=== PATIENT | male | born 1935 | race Caucasian/White ===

== ENCOUNTER 2017-12-01 05:33 | Day surgery (SDC) | payer MEDICARE ==
[2017-11-28 12:45] VITALS: BMI 24.1
--- NOTE | 2017-11-30 09:58 | HP ---
HISTORY AND PHYSICAL CHIEF COMPLAINT: Right shoulder pain. HISTORY OF PRESENT ILLNESS: The patient is a 81-year-old retired right-hand dominant male who presents with right shoulder pain after an injury in September of this year. He was throwing horseshoes. He also had a second injury where he fell landing on his right side. He has tried therapy in addition to medications with persistent pain. He is having pain with attempted overhead use and at night. He notes it limits his normal function and activities. PAST MEDICAL HISTORY: Significant for atrial fibrillation, hypertension, sarcoidosis and rheumatoid arthritis. PAST SURGICAL HISTORY: Significant for appendectomy. CURRENT MEDICATIONS: 1. Atenolol. 2. Meloxicam. 3. Prilosec. 4. Benadryl. He notes allergies to LEVAQUIN, CELEBREX, SULFA, and Prednisone. FAMILY HISTORY: Significant for cancer. SOCIAL HISTORY: Significant for previous tobacco use; however, he quit in 2014. 16 POINT REVIEW OF SYSTEMS: Otherwise reviewed and is noncontributory. PHYSICAL EXAMINATION: On examination, the patient is approximately 5 foot 5, 154 pounds of mesomorphic habitus. HEENT exam is nonfocal. Neck is supple. On examination of his right shoulder, he is tender about the anterior subacromial space. He has mild subacromial crepitus. Active range of motion, forward elevation 125 degrees, external rotation with arm at side 45 degrees. Internal rotation to L3. Passively, I am able to forward elevate him to 135 degrees. Motor strength is 4+/5 for abduction, 5-/5 for external rotation with arm at side. Impingement test, Neer test, and Speed tests are positive. He has pain with lift-off. His distal neurovascular exam otherwise appears intact in the right upper extremity. MRI report of the right shoulder 09/30/2017 shows medial biceps subluxation along with a full-thickness tear involving the supraspinatus tendon. IMPRESSION: 1. Right proximal biceps tendinosis/partial thickness tear. 2. Symptomatic right rotator cuff tear. 3. History of rheumatoid arthritis. 4. History of sarcoidosis. RECOMMENDATIONS: I talked to the patient at length regarding his condition and treatment options. At this point he remains quite symptomatic, despite conservative measures. After thorough discussion, he opts to proceed with surgery. We will plan to proceed with arthroscopic evaluation with probable subacromial decompression, possible rotator cuff repair, and possible biceps tenotomy. Risks and benefits were discussed at length in layman's terms. We will likely perform that as an outpatient procedure. MMODL / IJN: [id number] /
[~2017-12-01 05:33] MED LIST: ceFAZolin 1,000 MG in DEXTROSE/WATER 1 50ML.BAG IV ONE
[2017-12-01] MEDS ORDERED: LIDOCAINE 1% 20 ML VIAL (10MG/ML) FOR IV START INTRADERMA PRN (05:42)
[2017-12-01] MEDS ORDERED: ONDANSETRON 4 MG/2 ML VIAL IVP ONE ×2 (05:42→11:36)
[2017-12-01] MEDS ORDERED: LACTATED RINGERS 1,000 ML IV SCH (05:42)
[2017-12-01] MEDS ORDERED: MIDAZOLAM 2 MG/2 ML VIAL ONE ×2 (07:11→08:00)
--- NOTE | 2017-12-01 07:28 | P.ONQ ---
Anesthesiology Proc Note - PNB - Peripheral Nerve Block Performed Right Interscalene Single Time Out Performed: Yes Procedure Start Time: 07:14 Procedure Stop Time: :21 Indication: Requested by physician Specifically requested for management of pain by : Noel Dykes Sedation Type: Sedate with meaningful contact maintained Preparation: Sterile Prep Position: Supine Needle Types: Other (see comment) Needle Size: 50mm (2") Needle Gauge: 21 Technique: Ultrasound Injectate: 0.5% Ropivacaine (see comment for volume) (10 ml plus lidocaine 2?5 with epi 10 ml) Blood Aspirated: No Pain Paresthesia on Injection Noted: No Resistance on Injection: Normal Events: Uneventful and Well Tolerated
[2017-12-01] MEDS ORDERED: KETOROLAC 30 MG/ML 1 ML VIAL ONE (08:00)
[2017-12-01] MEDS ORDERED: ROPIVACAINE 5 MG/ML 30 ML VIAL ONE (08:00)
[2017-12-01] MEDS ORDERED: LIDOCAINE 2%-EPI 1:100,000 20 ML VIAL ONE (08:00)
[2017-12-01] MEDS ORDERED: LABETALOL 5 MG/ML VIAL MDV ONE (08:00)
[2017-12-01] MEDS ORDERED: LIDOCAINE 1% INJ 10MG/ML (20 ML MDV) ONE (08:00)
[2017-12-01] MEDS ORDERED: NALOXONE 0.4 MG/ML 1 ML VIAL ONE (08:00)
[2017-12-01] MEDS ORDERED: fentaNYL (PF) 50 MCG/ML 2 ML AMP ONE (08:00)
[2017-12-01] MEDS ORDERED: PROPOFOL 10 MG/ML 20 ML VIAL IV ONE (08:00)
[2017-12-01] MEDS ORDERED: HYDROmorphone (PF) 1 MG/ML ONE (08:00)
[2017-12-01] MEDS ORDERED: SUCCINYLCHOLINE CHLORIDE 100 MG/5 ML SYR IV ONE (08:00)
[2017-12-01] MEDS ORDERED: LACTATED RINGERS 1,000 ML IV ONE ×2 (08:27→10:25)
[2017-12-01] MEDS ORDERED: EPINEPHrine (PF) 1 ML in SODIUM CHLORIDE 0.9% IRRIGATIO 3,000 ML IRRIGATION ONE ×8 (08:27)
[2017-12-01 09:36] VITALS: TEMP 97.4
--- NOTE | 2017-12-01 09:36 | P.OP ---
Date of Procedure: 12/01/17 Preoperative Diagnosis: Right symptomatic rotator cuff tear, high-grade partial-thickness tear long head of the biceps Postoperative Diagnosis: Same Procedure(s) Performed: Right shoulder arthroscopic subacromial decompression/biceps tenotomy/rotator cuff repair Implants: Arthrex 5.5 mm swivel lock anchor 2 Anesthesia: MARIA GUADALUPE, [facility] Surgeon: Noel Dykes Estimated Blood Loss (ml): 10 Pathology: none sent Condition: stable Disposition: PACU Indications for Procedure: The patient is a 81-year-old male who presents with progressive right shoulder pain after a recent injury despite conservative measures. A discussion of the risks and benefits of operative intervention versus continued conservative measures was made with patient. He opted to proceed with surgery. Operative risks to include infection, neurovascular injury, development of blood clots, possible tendon rerupture, possible postoperative stiffness and need for subsequent procedures was discussed. Informed consent was obtained. Operative Findings: As below Description of Procedure: The patient was brought to the operating room, and after induction of general anesthesia was placed in the beachchair position. Bony prominences were appropriately padded. A preoperative interscalene block was performed by anesthesia for postoperative analgesia. I examined the right shoulder. There was no gross block to passive motion or instability. The right upper extremity was prepped and draped in normal fashion. The bony outlines the acromion, distal clavicle, and coracoid process were outlined with a skin marker. The glenohumeral joint was inflated with 50 mL of saline utilizing a spinal needle from posterior approach. A posterior portal was made through a 5 mm skin incision 1 cm medial and inferior to the posterior lateral border of the acromion. A blunt trocar was used to easily into the joint. Diagnostic arthroscopy was performed. An anterior portal was made entering the joint above the subscapularis tendon lateral to the coracoid process. The subscapularis appeared to be intact. There was a high-grade partial-thickness tear of the intra-articular portion of the biceps. It was elected to proceed with tenotomy at this point. It was released from the superior labrum with electrocautery and allowed to retract the bicipital groove. The superior labrum was intact. The anterior and posterior labrum were intact. Minimal degenerative changes involving humeral head and glenoid were noted. The rotator cuff was inspected. A full-thickness tear involving the anterior aspect the supraspinatus was noted with minimal retraction. The posterior portion the cuff appeared intact. The arthroscope was placed into the acromial space. A lateral portal was made through a 5 mm skin incision 2 cm inferior to the anterior lateral border of the acromion. The soft tissue on the undersurface of the acromion was debrided with a motorized shaver and with electrocautery clearly defining the anterior medial and lateral borders as well as the distal clavicle. An anterior inferior acromioplasty is performed with a motorized cielo starting anterolateral, then extending this posteriorly, then extending this medially. I was able to convert to a flat acromion. This was verified from the posterior and lateral viewing portals. The coracoacromial ligament was detached from the anterior acromion with electrocautery. The rotator cuff was then inspected. A 1.5 cm tear involving the anterior aspect the supraspinatus was noted with minimal retraction. This was easily brought back to the greater tuberosity. A motorized cielo was used to lightly debride the greater tuberosity down to bleeding bony surface. An accessory superior lateral portal was made through a 4 mm skin incision off the lateral edge of the acromion. A 5.5 mm swivel lock anchor was placed in the appropriate starting awl loaded with #2 fiber tape. The fiber tape was then passed through the rotator cuff with a scorpion suture passer. A lateral was then placed with the appropriate starting awl. A 5.5 mm swivel lock anchor was placed. The suture was appropriately tensioned. Final arthroscopic view showed adequate compression of the rotator cuff on the footprint. The arthroscope was then removed. The portals were closed with simple 3-0 nylon suture. A sterile dressing was applied in addition to an abductor brace. The patient was awoken from general anesthesia and transferred to the recovery room in good condition. Blood loss was estimated at 10 mL. No complications were incurred. Sponge and needle counts were correct at the end the case.
[2017-12-01 09:42] LABS: Glucose,Whole Blood 113 mg/dL (75-99)
[2017-12-01] MEDS: HYDROmorphone 0.5 MG/0.5 ML SYRINGE IVP PRN ×2 (10:21→10:30)
[2017-12-01 10:24] VITALS: RESP 18
[2017-12-01] MEDS ORDERED: ALBUTEROL NEBULIZED 2.5 MG/3 ML INHALATION STA (11:22)
[2017-12-01 13:03] VITALS: BP 152/74; PULSE 63
== END 2017-12-01 13:37 | disposition home or self-care (01) ==
LOC: OR 05:33
PROVIDERS: ATTEND Orthopaedic Surgery
DX: S46.011A Strain of muscle(s) and tendon(s) of the rotator cuff of right shoulder, initial encounter (principal); S46.111A Strain of muscle, fascia and tendon of long head of biceps, right arm, initial encounter; X58.XXXA Exposure to other specified factors, initial encounter; W19.XXXA Unspecified fall, initial encounter; Y93.59 Activity, other involving other sports and athletics played individually; D86.9 Sarcoidosis, unspecified; J44.9 Chronic obstructive pulmonary disease, unspecified; E78.5 Hyperlipidemia, unspecified; I48.0 Paroxysmal atrial fibrillation; M06.9 Rheumatoid arthritis, unspecified; I11.0 Hypertensive heart disease with heart failure; I50.30 Unspecified diastolic (congestive) heart failure; Z79.82 Long term (current) use of aspirin; Z79.899 Other long term (current) drug therapy; Z79.1 Long term (current) use of non-steroidal anti-inflammatories (NSAID); Z88.1 Allergy status to other antibiotic agents; Z88.2 Allergy status to sulfonamides; Z88.8 Allergy status to other drugs, medicaments and biological substances; Z87.891 Personal history of nicotine dependence
CPT/HCPCS: 94640; 64415; 29827; 29826; C1713 ×2; C1894; J2250; J2310; J2405; J0171; J2001; J3010; J1885; J1170 ×2; J0690; J2795; J0330; J2704

== ENCOUNTER → 2018-08-13 | Outpatient (CLI) | payer MEDICARE ==
--- NOTE | 2018-08-13 10:03 | MR ---
EXAMINATION TYPE: MR cervical spine wo con DATE OF EXAM: 08/13/2018 COMPARISON: None HISTORY: Neck pain TECHNIQUE: Multiplanar, multisequence images of the cervical spine were acquired. C2-C3: There is disc desiccation. Mild uncovertebral joint hypertrophy. No canal stenosis or focal he rniation. C3-C4: Degenerative disc disease with bilateral uncovertebral joint hypertrophy and facet arthropathy . Moderate to severe right foraminal encroachment and moderate left foraminal encroachment. Ligamentu m flavum hypertrophy and central disc bulging contributes to mild central stenosis. C4-C5: Degenerative disc disease with bilateral uncovertebral joint hypertrophy. There is mild bilate ral foraminal encroachment. No Canal stenosis. C5-C6: Degenerative disc disease with broad-based central disc bulging with disc osteophyte complex. Uncovertebral joint hypertrophy contributes to mild right and moderate left foraminal encroachment. D isc bulging capped by spur abuts the anterior margin the spinal cord with moderate central stenosis. C6-C7: Degenerative disc disease with broad-based central disc protrusion. There is uncovertebral balwinder nt hypertrophy and mild to moderate bilateral foraminal encroachment. There is mild effacement of the justus sac. C7-T1: No disc herniation or canal stenosis. No foraminal encroachment. Cervical segments are intact. There is normal alignment. Cervical spinal cord is of normal signal. Craniovertebral junction relationships are within normal limits. IMPRESSION: 1. Multilevel degenerative disc disease with multilevel foraminal encroachment. Hypertrophic change a nd disc bulging or protrusion results in multilevel canal stenosis as discussed above.
== END | disposition home or self-care (01) ==
LOC: RADMRIMAIN 08:41
PROVIDERS: ATTEND Family Medicine
DX: M48.02 Spinal stenosis, cervical region (principal); M50.222 Other cervical disc displacement at C5-C6 level; M50.223 Other cervical disc displacement at C6-C7 level; M50.31 Other cervical disc degeneration, high cervical region; M54.12 Radiculopathy, cervical region
CPT/HCPCS: 72141

== ENCOUNTER 2021-11-15 15:22 | Inpatient (IN) | payer MEDICARE ==
[2021-11-15 19:11] LABS: Appearance,Urine Clear (Clear); Bilirubin,Urine Negative (Negative); Blood,Urine Moderate (Negative); Color,Urine Light Yellow; Glucose,Urine (UA) Negative (Negative); Ketones,Urine Trace (Negative); Leukocyte Esterase,Urine Negative (Negative); Nitrite,Urine Negative (Negative); PH, Urine 5.5 (5.0-8.0); Protein,Urine Trace (Negative); RBC,Urine 4 /hpf (0-5); Specific Gravity,Urine 1.012 (1.001-1.035); Squamous Epithelial Cell,Urine <1 /hpf (0-4); Urobilinogen,Urine <2.0 mg/dL (<2.0); WBC,Urine 2 /hpf (0-5)
[2021-11-15] MEDS ORDERED: SODIUM CHLORIDE 0.9% 1,000 ML IV STA (20:19)
[2021-11-15] MEDS ORDERED: MORPHINE SULFATE 4 MG/ML SYRINGE IV STA (20:24)
[2021-11-15] MEDS ORDERED: ONDANSETRON 4 MG/2 ML VIAL IVP STA (20:24)
--- NOTE | 2021-11-15 20:30 | ED ---
Abdominal Pain HPI - General Chief Complaint: Abdominal Pain Stated Complaint: kidney stone,sent by gordon to be admitted Time Seen by Provider: 11/15/21 20:18 Source: patient, RN notes reviewed Mode of arrival: ambulatory Limitations: no limitations - History of Present Illness Initial Comments: This is a pleasant 85-year-old male presents back complaining of sharp left flank pain which started on Monday. Pain is essentially been constant. No a lleviating or exacerbating factors. Patient was seen at the [facility] facility and transferred here for admission. They were concerned about the size of the stone which is 6 x 4 x 4 mm in the left proximal ureter. There was concerned about the patient's renal function which shows a creatinine of 2.01 which is almost doubled from the patient's previous creatinine here. Patient was given Flomax at the previous facility. He is also given pain medication. Patient still complaining of pain at this time. No fever or chills. No headache, no fever or chills, no changes in vision or hearing, no sore throat or difficulty with speech, no neck pain, no chest pain or shortness of breath, n o abdominal pain, no nausea or vomiting, no changes in urination or bowel movements, no numbness or tingling, no extremity pain, no skin rashes or lesions. Past medical, surgical, social, and family history reviewed. MD Complaint: flank pain - Related Data Home Medications Medication Instructions Recorded Confirmed Aspirin [Adult Low Dose Aspirin EC] 81 mg PO DAILY 11/28/17 12/01/17 Esomeprazole Magnesium [NexIUM] 20 mg PO DAILY 11/28/17 12/01/17 Omeprazole 20 mg PO AC-BRKFST 11/28/17 12/01/17 atenoloL 25 mg PO BID 11/28/17 12/01/17 diphenhydrAMINE HCL [Benadryl] 25 mg PO BID 11/28/17 12/01/17 Budesonide [Pulmicort Flexhaler] 2 puff INHALATION BID 12/01/17 12/01/17 Ipratropium/Albuterol Sulfate 1 - 2 puff INHALATION QID 12/01/17 12/01/17 [Combivent Respimat Inhaler] Meloxicam 15 mg PO DAILY PRN 12/01/17 12/01/17 Previous Rx's Medication Instructions Recorded HYDROcodone/APAP 7.5-325MG [Welch 1 tab PO Q4-6H PRN #28 tab 12/01/17 7.5-325] Allergies Allergy/AdvReac Type Severity Reaction Status Date / Time prednisone Allergy Severe Rash/Hives Verified 11/15/21 17:03 celecoxib [From Celebrex] Allergy "passed Verified 11/15/21 17:03 out" levofloxacin [From Levaquin] Allergy Rash/Hives Verified 11/15/21 17:03 Penicillins Allergy Rash/Hives Verified 11/15/21 17:03 Sulfa (Sulfonamide Allergy Unknown Verified 11/15/21 17:03 Antibiotics) Review of Systems ROS Statement: Those systems with pertinent positive or pertinent negative responses have been documented in the HPI. ROS Other: All systems not noted in ROS Statement are negative. Past Medical History Past Medical History: Atrial Fibrillation, COPD, Hyperlipidemia, Hypertension, Osteoarthritis (OA) History of Any Multi-Drug Resistant Organisms: None Reported Past Surgical History: Appendectomy, Orthopedic Surgery Additional Past Surgical History / Comment(s): "bone chip in ankle" Past Anesthesia/Blood Transfusion Reactions: No Reported Reaction Past Psychological History: No Psychological Hx Reported Smoking Status: Former smoker Past Alcohol Use History: Rare Past Drug Use History: None Reported - Past Family History Sister(s) Family Medical History: Cancer Brother(s) Family Medical History: Cancer General Exam - General Exam Comments Initial Comments: Vital signs reviewed, patient does not appear to be ill or toxic. Limitations: no limitations General appearance: in distress Head exam: Present: atraumatic, normocephalic, normal inspection Eye exam: Present: normal appearance, PERRL, EOMI. Absent: scleral icterus, conjunctival injection, periorbital swelling ENT exam: Present: normal exam, mucous membranes moist Neck exam: Present: normal inspection, full ROM. Absent: tenderness, meningismus, lymphadenopathy Respiratory exam: Present: normal lung sounds bilaterally. Absent: respiratory distress, wheezes, rales, rhonchi, stridor Cardiovascular Exam: Present: regular rate, normal rhythm, normal heart sounds. Absent: systolic murmur, diastolic murmur, rubs, gallop, clicks GI/Abdominal exam: Present: soft, normal bowel sounds. Absent: distended, tenderness, guarding, rebound, rigid Extremities exam: Present: normal inspection, full ROM, normal capillary refill. Absent: tenderness, pedal edema, joint swelling, calf tenderness Back exam: Present: normal inspection, CVA tenderness (L). Absent: CVA tenderness (R) Neurological exam: Present: alert, oriented X3, CN II-XII intact Psychiatric exam: Present: normal affect, normal mood Skin exam: Present: warm, dry, intact, normal color. Absent: rash Course Vital Signs 11/15/21 11/15/21 17:01 20:19 Temperature 98.3 F Pulse Rate 79 86 Respiratory 16 18 Rate Blood Pressure 156/84 184/90 O2 Sat by Pulse 96 97 Oximetry - Reevaluation(s) Reevaluation #1: 11/15/21 22:15 Case discussed in detail with the on-call urologist as well as Dr. solomon from EMS for admission Medical Decision Making - Medical Decision Making Patient will require admission for left-sided ureteral stone, proximal, 6 x 4 x 4 millimeters. Doubling of renal function with a creatinine of 2.01. Patient's blood pressure also elevated. We'll treat. Discussed with urology and [facility]. Admitted to this hospital discussed all findings with the patient. All questions answered. The case was discussed in detail with ED attending physician. Presentation, findings, treatment plan discussed in detail. She[employer] C[employer] Dr. Chiang - Lab Data Result diagrams: 11/15/21 21:17 11/15/21 21:17 Lab Results 11/15/21 11/15/21 11/15/21 Range/Units 18:21 21:17 21:17 WBC 18.1 H (3.8-10.6) k/uL RBC 3.91 L (4.30-5.90) m/uL Hgb 12.5 L (13.0-17.5) gm/dL Hct 38.6 L (39.0-53.0) % MCV 98.7 (80.0-100.0) fL MCH 32.1 (25.0-35.0) pg MCHC 32.5 (31.0-37.0) g/dL RDW 13.8 (11.5-15.5) % Plt Count 276 (150-450) k/uL MPV 7.3 Neutrophils % 89 % Lymphocytes % 3 % Monocytes % 6 % Eosinophils % 1 % Basophils % 0 % Neutrophils # 16.0 H (1.3-7.7) k/uL Lymphocytes # 0.6 L (1.0-4.8) k/uL Monocytes # 1.2 H (0-1.0) k/uL Eosinophils # 0.1 (0-0.7) k/uL Basophils # 0.0 (0-0.2) k/uL Sodium 131 L (137-145) mmol/L Potassium 4.6 (3.5-5.1) mmol/L Chloride 100 (98-107) mmol/L Carbon Dioxide 21 L (22-30) mmol/L Anion Gap 10 mmol/L BUN 28 H (9-20) mg/dL Creatinine 1.83 H (0.66-1.25) mg/dL Est GFR (CKD-EPI)AfAm 39 (>60 ml/min/1.73 sqM) Est GFR (CKD-EPI)NonAf 33 (>60 ml/min/1.73 sqM) Glucose 142 H (74-99) mg/dL Calcium 8.1 L (8.4-10.2) mg/dL Total Bilirubin 0.7 (0.2-1.3) mg/dL AST 26 (17-59) U/L ALT 10 (4-49) U/L Alkaline Phosphatase 78 (38-126) U/L Total Protein 6.8 (6.3-8.2) g/dL Albumin 3.6 (3.5-5.0) g/dL Urine Color Light Yellow Urine Appearance Clear (Clear) Urine pH 5.5 (5.0-8.0) Ur Specific [place] 1.012 (1.001-1.035) Urine Protein Trace H (Negative) Urine Glucose (UA) Negative (Negative) Urine Ketones Trace H (Negative) Urine Blood Moderate H (Negative) Urine Nitrite Negative (Negative) Urine Bilirubin Negative (Negative) Urine Urobilinogen <2.0 (<2.0) mg/dL Ur Leukocyte Esterase Negative (Negative) Urine RBC 4 (0-5) /hpf Urine WBC 2 (0-5) /hpf Ur Squamous Epith Cells <1 (0-4) /hpf Disposition Clinical Impression: Ureterolithiasis, Acute kidney injury, Hydronephrosis, Hydroureter, left, Uncontrolled hypertension Disposition: ADMITTED IP TO THIS HOSP Condition: Stable Is patient prescribed a controlled substance at d/c from ED?: No Time of Disposition: 20:30 Decision to Admit Reason: Admit from EC Decision Time: 20:30
--- NOTE | 2021-11-15 20:54 | XR ---
EXAMINATION TYPE: XR KUB DATE OF EXAM: 11/15/2021 COMPARISON: NONE HISTORY: Abdominal pain TECHNIQUE: 2 views upright FINDINGS: There is some contrast material in the large bowel. No sign of intestinal obstruction or pn eumoperitoneum. Fecal pattern is normal. Lung bases are clear. There is some pulmonary hyperinflation . IMPRESSION: Nonacute abdomen. There is probably COPD.
[2021-11-15 21:35] LABS: Basophils % (A) 0 %; Eosinophils # (A) 0.1 k/uL (0-0.7); Eosinophils % (A) 1 %; HCT 38.6 % (39.0-53.0); HGB 12.5 gm/dL (13.0-17.5); Lymphocytes # (A) 0.6 k/uL (1.0-4.8); Lymphocytes % (A) 3 %; MCH 32.1 pg (25.0-35.0); MCHC 32.5 g/dL (31.0-37.0); MCV 98.7 fL (80.0-100.0); Mean Platelet Volume 7.3; Monocytes # (A) 1.2 k/uL (0-1.0); Monocytes % (A) 6 %; Neutrophils % (A) 89 %; Platelet Count 276 k/uL (150-450); RBC 3.91 m/uL (4.30-5.90); RDW 13.8 % (11.5-15.5); WBC 18.1 k/uL (3.8-10.6)
[2021-11-15 21:37] LABS: Albumin 3.6 g/dL (3.5-5.0); Calcium 8.1 mg/dL (8.4-10.2); Total Bilirubin 0.7 mg/dL (0.2-1.3); Total Protein 6.8 g/dL (6.3-8.2)
[2021-11-15 21:44] LABS: Potassium 4.6 mmol/L (3.5-5.1)
[2021-11-15] MEDS ORDERED: METOPROLOL SUCCINATE (ER) 25 MG TAB.ER.24H PO STA (22:15)
[2021-11-15] MEDS ORDERED: NALOXONE 0.4 MG/ML 1 ML VIAL IV PRN (22:17)
[2021-11-15] MEDS ORDERED: ONDANSETRON 4 MG/2 ML VIAL IVP PRN (22:17)
[2021-11-15] MEDS ORDERED: MORPHINE SULFATE 4 MG/ML SYRINGE IV PRN (22:17)
[2021-11-15] MEDS: SODIUM CHLORIDE 0.9% 1,000 ML IV SCH (22:26)
[2021-11-15] MEDS: TAMSULOSIN 0.4 MG CAP.ER.24H PO SCH (22:57)
[2021-11-15] MEDS ORDERED: KETOROLAC 15 MG/ML 1 ML VIAL IVP PRN (23:00)
[2021-11-16] MEDS ORDERED: ACETAMINOPHEN TAB 325 MG TAB PO PRN
[2021-11-16 06:07] LABS: Calcium 7.7 mg/dL (8.4-10.2); Potassium 4.3 mmol/L (3.5-5.1)
[2021-11-16] MEDS: IPRATROPIUM-ALBUTEROL 3 ML NEB INHALATION SCH ×4 (08:13→19:39)
[2021-11-16] MEDS: atenoloL 25 MG TAB PO SCH ×2 (08:28→23:27)
[2021-11-16] MEDS: PANTOPRAZOLE 40 MG TABLET PO SCH (08:28)
[2021-11-16] MEDS ORDERED: HYDROmorphone 0.5 MG/0.5 ML SYRINGE IVP PRN (08:42)
[2021-11-16] MEDS ORDERED: HYDROcodone/APAP 5-325MG 1 EACH TAB PO PRN (08:43)
[2021-11-16] MEDS: SODIUM CHLORIDE 0.9% 1,000 ML IV SCH (09:40)
[2021-11-16] MEDS ORDERED: IV FLUID CONTINUATION 1,000 ML IV ONE (16:11)
[2021-11-16] MEDS ORDERED: PROPOFOL 10 MG/ML 20 ML VIAL IV ONE ×2 (16:25)
[2021-11-16] MEDS ORDERED: fentaNYL (PF) 50 MCG/ML 2 ML AMP ONE ×2 (16:25)
[2021-11-16] MEDS ORDERED: LIDOCAINE 1% INJ 10MG/ML (20 ML MDV) ONE (16:25)
[2021-11-16] MEDS ORDERED: LIDOCAINE 2% INJ 20 MG/ML (2 ML VIAL) ONE (16:25)
[2021-11-16] MEDS ORDERED: MIDAZOLAM 2 MG/2 ML VIAL ONE ×2 (16:25)
[2021-11-16] MEDS ORDERED: SODIUM CHLORIDE 0.9% 50 ML with ceFAZolin 2,000 MG IV ONE ×2 (16:32)
--- NOTE | 2021-11-16 16:39 | P.GSCN ---
History of Present Illness Consult date: 11/16/21 Reason for Consult: Left ureteral stone History of present illness: This is an 85-year-old male admitted to the hospital with a 6 mm left-sided proximal stone. He was initially seen in [facility], and was transferred to [facility]. At that time he underwent a CT that showed evidence of a 6 mm left- sided proximal stone, and evidence of acute kidney injury and elevation of creatinine is 2. A repeat creatinine this morning was 1.8. He still having persistent flank pain, associated with nausea. Denies any dysuria or gross hematuria. No previous history of kidney stones. No known family history of kidney stones. Review of Systems - Constitutional Denies fever, Denies weight loss - Cardiovascular Denies chest pain, Denies shortness of breath - Respiratory Denies cough, Denies 7 - Gastrointestinal Reports nausea, Denies vomiting - Genitourinary Reports flank pain, Denies hematuria - Integumentary Denies rash, Denies unusual bruising - Neurological Denies headaches, Denies syncope Past Medical History Past Medical History: Atrial Fibrillation, COPD, Hyperlipidemia, Hypertension, O steoarthritis (OA) History of Any Multi-Drug Resistant Organisms: None Reported Past Surgical History: Appendectomy, Orthopedic Surgery Additional Past Surgical History / Comment(s): "bone chip in ankle" Past Anesthesia/Blood Transfusion Reactions: No Reported Reaction Past Psychological History: No Psychological Hx Reported Smoking Status: Former smoker Past Alcohol Use History: Rare Past Drug Use History: None Reported - Past Family History Sister(s) Family Medical History: Cancer Brother(s) Family Medical History: Cancer Medications and Allergies Home Medications Medication Instructions Recorded Confirmed Type atenoloL 25 mg PO BID 11/28/17 11/16/21 History Budesonide [Pulmicort Flexhaler] 2 puff INHALATION RT-BID 12/01/17 11/16/21 History Ipratropium/Albuterol Sulfate 1 - 2 puff INHALATION RT-QID PRN 12/01/17 11/16/21 History [Combivent Respimat Inhaler] Acetaminophen Tab [Tylenol Tab] 500 mg PO Q6H PRN 11/15/21 11/15/21 History Metoprolol Tartrate [Lopressor] 25 mg PO BID 11/15/21 11/16/21 History Apixaban [Eliquis] 5 mg PO BID 11/16/21 11/16/21 History Aspirin 81 mg PO DAILY 11/16/21 11/16/21 History Atorvastatin [Lipitor] 40 mg PO DAILY 11/16/21 11/16/21 History Meloxicam [Mobic] 7.5 mg PO DAILY PRN 11/16/21 11/16/21 History Omeprazole [PriLOSEC] 40 mg PO BID 11/16/21 11/16/21 History Allergies Allergy/AdvReac Type Severity Reaction Status Date / Time prednisone Allergy Severe Rash/Hives Verified 11/16/21 10:42 acetaminophen Allergy Per PCP Verified 11/16/21 10:42 [From Darvocet-N] aspirin Allergy Unknown Verified 11/16/21 10:42 celecoxib [From Celebrex] Allergy "passed Verified 11/16/21 10:42 out" ibuprofen [From Motrin] Allergy Per PCP Verified 11/16/21 10:42 levofloxacin [From Levaquin] Allergy Rash/Hives Verified 11/16/21 10:42 methylprednisolone Allergy Per PCP Verified 11/16/21 10:42 [From Medrol] Penicillins Allergy Rash/Hives Verified 11/16/21 10:42 propoxyphene Allergy Per PCP Verified 11/16/21 10:42 [From Darvocet-N] rofecoxib [From Vioxx] Allergy Per PCP Verified 11/16/21 10:42 Sulfa (Sulfonamide Allergy Per PCP Verified 11/16/21 10:42 Antibiotics) Surgical - Exam Vital Signs Temp Pulse Resp BP Pulse Ox 98.3 F 79 16 156/84 96 11/15/21 17:01 11/15/21 17:01 11/15/21 17:01 11/15/21 17:01 11/15/21 17:01 - General no distress, moderate pain - Eyes normal ocular movement, no pale - ENT normal nares, normal mucosa - Respiratory normal expansion, normal respiratory effort - Abdomen Abdomen: soft, tender (Left flank) - Psychiatric oriented to time, oriented to person, oriented to place Results - Labs 11/15/21 21:17 11/16/21 05:09 Abnormal Lab Results - Last 24 Hours (Table) 11/15/21 11/15/21 11/15/21 Range/Units 18:21 21:17 21:17 WBC 18.1 H (3.8-10.6) k/uL RBC 3.91 L (4.30-5.90) m/uL Hgb 12.5 L (13.0-17.5) gm/dL Hct 38.6 L (39.0-53.0) % Neutrophils # 16.0 H (1.3-7.7) k/uL Lymphocytes # 0.6 L (1.0-4.8) k/uL Monocytes # 1.2 H (0-1.0) k/uL Sodium 131 L (137-145) mmol/L Carbon Dioxide 21 L (22-30) mmol/L BUN 28 H (9-20) mg/dL Creatinine 1.83 H (0.66-1.25) mg/dL Glucose 142 H (74-99) mg/dL Calcium 8.1 L (8.4-10.2) mg/dL Urine Protein Trace H (Negative) Urine Ketones Trace H (Negative) Urine Blood Moderate H (Negative) 11/16/21 Range/Units 05:09 WBC (3.8-10.6) k/uL RBC (4.30-5.90) m/uL Hgb (13.0-17.5) gm/dL Hct (39.0-53.0) % Neutrophils # (1.3-7.7) k/uL Lymphocytes # (1.0-4.8) k/uL Monocytes # (0-1.0) k/uL Sodium 133 L (137-145) mmol/L Carbon Dioxide (22-30) mmol/L BUN 24 H (9-20) mg/dL Creatinine 1.80 H (0.66-1.25) mg/dL Glucose 123 H (74-99) mg/dL Calcium 7.7 L (8.4-10.2) mg/dL Urine Protein (Negative) Urine Ketones (Negative) Urine Blood (Negative) Diabetes panel 11/15/21 11/16/21 Range/Units 21:17 05:09 Sodium 131 L 133 L (137-145) mmol/L Potassium 4.6 4.3 (3.5-5.1) mmol/L Chloride 100 103 (98-107) mmol/L Carbon Dioxide 21 L 23 (22-30) mmol/L BUN 28 H 24 H (9-20) mg/dL Creatinine 1.83 H 1.80 H (0.66-1.25) mg/dL Glucose 142 H 123 H (74-99) mg/dL Calcium 8.1 L 7.7 L (8.4-10.2) mg/dL AST 26 (17-59) U/L ALT 10 (4-49) U/L Alkaline Phosphatase 78 (38-126) U/L Total Protein 6.8 (6.3-8.2) g/dL Albumin 3.6 (3.5-5.0) g/dL Calcium panel 11/15/21 11/16/21 Range/Units 21:17 05:09 Calcium 8.1 L 7.7 L (8.4-10.2) mg/dL Albumin 3.6 (3.5-5.0) g/dL Pituitary panel 11/15/21 11/16/21 Range/Units 21:17 05:09 Sodium 131 L 133 L (137-145) mmol/L Potassium 4.6 4.3 (3.5-5.1) mmol/L Chloride 100 103 (98-107) mmol/L Carbon Dioxide 21 L 23 (22-30) mmol/L BUN 28 H 24 H (9-20) mg/dL Creatinine 1.83 H 1.80 H (0.66-1.25) mg/dL Glucose 142 H 123 H (74-99) mg/dL Calcium 8.1 L 7.7 L (8.4-10.2) mg/dL Adrenal panel 11/15/21 11/16/21 Range/Units 21:17 05:09 Sodium 131 L 133 L (137-145) mmol/L Potassium 4.6 4.3 (3.5-5.1) mmol/L Chloride 100 103 (98-107) mmol/L Carbon Dioxide 21 L 23 (22-30) mmol/L BUN 28 H 24 H (9-20) mg/dL Creatinine 1.83 H 1.80 H (0.66-1.25) mg/dL Glucose 142 H 123 H (74-99) mg/dL Calcium 8.1 L 7.7 L (8.4-10.2) mg/dL Total Bilirubin 0.7 (0.2-1.3) mg/dL AST 26 (17-59) U/L ALT 10 (4-49) U/L Alkaline Phosphatase 78 (38-126) U/L Total Protein 6.8 (6.3-8.2) g/dL Albumin 3.6 (3.5-5.0) g/dL Assessment and Plan Assessment: 85-year-old male, admitted to the hospital with acute kidney injury, and obstructive 6 mm left-sided proximal stone. Patient is having intractable pain secondary to his stone. Option of left-sided ureteroscopy with holmium laser was discussed with him. Discussed with him the risk which includes but not limited to bleeding, infection, injury to the ureter -Or for left-sided ureteroscopy with holmium laser lithotripsy, stone basketing and stent insertion
--- NOTE | 2021-11-16 16:53 | P.HPIM ---
History of Present Illness H&P Date: 11/16/21 This is an 85 year old male with history of atrial fibrillation, COPD, hypertension, hyperlipidemia, former smoker who presents to the hospital with complaints of sharp left flank pain on going since monday. Patient was found to have stone in the proximal left ureter measuring 6 x 4 x 4 mm and creatinine was elevated at 2.01. Outside CT completed at [facility] also shows moderate hydronephrosis on the left. No prior history of kidney stones. He denies shortness of breath, no chest pain. No nausea or vomiting. He does report left flank/back pain which he states has improved with IV pain medication. He does take eliquis outpatient per family at bedside he did not take today or yesterday. He was transferred here from outside facility. Patient had KUB completed which shows a nonacute abdomen and possible COPD. Labs showing sodium 133 which is improved with hydration. Creatinine today is 1.80. Patient also had leukocytosis at 18.1. Urinalysis negative for infection with moderate blood p resent. Urology has been consulted and patient is scheduled to undergo stone removal with left ureter stent. REVIEW OF SYSTEMS: CONSTITUTIONAL: No fever, no malaise, no fatigue. HEENT: No recent visual problems or hearing problems. Denied any sore throat. CARDIOVASCULAR: No chest pain, orthopnea, PND, no palpitations, no syncope. PULMONARY: No shortness of breath, no cough, no hemoptysis. GASTROINTESTINAL: No diarrhea, no nausea, no vomiting, no abdominal pain. Patient does have left flank pain. NEUROLOGICAL: No headaches, no weakness, no numbness. HEMATOLOGICAL: Denies any bleeding or petechiae. GENITOURINARY: Denies any burning micturition, frequency, or urgency. MUSCULOSKELETAL/RHEUMATOLOGICAL: Denies any joint pain, swelling, or any muscle pain. ENDOCRINE: Denies any polyuria or polydipsia. The rest of the 14-point review of systems is negative. PHYSICAL EXAMINATION: GENERAL: The patient is alert and oriented x3, not in any acute distress. Well developed, well nourished. HEENT: Pupils are round and equally reacting to light. EOMI. No scleral icterus. No conjunctival pallor. Normocephalic, atraumatic. No pharyngeal erythema. No thyromegaly. CARDIOVASCULAR: S1 and S2 present. No murmurs, rubs, or gallops. PULMONARY: Chest is clear to auscultation, no wheezing or crackles. ABDOMEN: Soft, nontender, nondistended, normoactive bowel sounds. No palpable organomegaly. MUSCULOSKELETAL: No joint swelling or deformity. EXTREMITIES: No cyanosis, clubbing, or pedal edema. NEUROLOGICAL: Gross neurological examination did not reveal any focal deficits. SKIN: No rashes. Assessment and plan Assessment Left flank pain secondary to stone in the proximal left ureter Moderate left hydronephrosis Acute renal injury multifocal with prerenal azotemia secondary to poor oral intake with obstructive uropathy. Luekocytosis, reactive Hypovolemic hyponatremia secondary to poor oral intake History COPD not in acute exacerbation Paroxysmal atrial fibrillation anticoagulated with eliquis outpatient. Hypertension Hyperlipidemia GI Prophylaxis DVT Prophylaxis Full Code Plan Continue with IV fluids Continue with pain management Hold eliquis Resume appropriate home medications Patient is NPO Pending urological evaluation The impression and plan of care has been dictated by Suni Min Nurse Practitioner as directed. Dr. nAna MD I have performed a history and physical examination and medical decision making of this patient, discussed the same with the dictator, and agree with the dictators assessment and plan as written, documented as a scribe. Based on total visit time, I have performed more than 50% of this visit. Past Medical History Past Medical History: Atrial Fibrillation, COPD, Hyperlipidemia, Hypertension, Osteoarthritis (OA) History of Any Multi-Drug Resistant Organisms: None Reported Past Surgical History: Appendectomy, Orthopedic Surgery Additional Past Surgical History / Comment(s): "bone chip in ankle" Past Anesthesia/Blood Transfusion Reactions: No Reported Reaction Past Psychological History: No Psychological Hx Reported Smoking Status: Former smoker Past Alcohol Use History: Rare Past Drug Use History: None Reported - Past Family History Sister(s) Family Medical History: Cancer Brother(s) Family Medical History: Cancer Medications and Allergies Home Medications Medication Instructions Recorded Confirmed Type atenoloL 25 mg PO BID 11/28/17 11/16/21 History Budesonide [Pulmicort Flexhaler] 2 puff INHALATION RT-BID 12/01/17 11/16/21 History Ipratropium/Albuterol Sulfate 1 - 2 puff INHALATION RT-QID PRN 12/01/17 11/16/21 History [Combivent Respimat Inhaler] Acetaminophen Tab [Tylenol Tab] 500 mg PO Q6H PRN 11/15/21 11/15/21 History Metoprolol Tartrate [Lopressor] 25 mg PO BID 11/15/21 11/16/21 History Apixaban [Eliquis] 5 mg PO BID 11/16/21 11/16/21 History Aspirin 81 mg PO DAILY 11/16/21 11/16/21 History Atorvastatin [Lipitor] 40 mg PO DAILY 11/16/21 11/16/21 History Meloxicam [Mobic] 7.5 mg PO DAILY PRN 11/16/21 11/16/21 History Omeprazole [PriLOSEC] 40 mg PO BID 11/16/21 11/16/21 History Allergies Allergy/AdvReac Type Severity Reaction Status Date / Time prednisone Allergy Severe Rash/Hives Verified 11/16/21 10:42 acetaminophen Allergy Per PCP Verified 11/16/21 10:42 [From Darvocet-N] aspirin Allergy Unknown Verified 11/16/21 10:42 celecoxib [From Celebrex] Allergy "passed Verified 11/16/21 10:42 out" ibuprofen [From Motrin] Allergy Per PCP Verified 11/16/21 10:42 levofloxacin [From Levaquin] Allergy Rash/Hives Verified 11/16/21 10:42 methylprednisolone Allergy Per PCP Verified 11/16/21 10:42 [From Medrol] Penicillins Allergy Rash/Hives Verified 11/16/21 10:42 propoxyphene Allergy Per PCP Verified 11/16/21 10:42 [From Darvocet-N] rofecoxib [From Vioxx] Allergy Per PCP Verified 11/16/21 10:42 Sulfa (Sulfonamide Allergy Per PCP Verified 11/16/21 10:42 Antibiotics) Physical Exam Vitals: Vital Signs Temp Pulse Resp BP Pulse Ox 11/16/21 08:23 84 16 11/16/21 08:13 84 16 94 L 11/16/21 06:42 88 15 129/61 100 11/16/21 05:00 90 16 130/88 97 11/16/21 03:00 84 16 133/78 97 11/16/21 01:00 90 17 138/81 97 11/16/21 00:00 77 16 137/78 96 11/15/21 23:00 84 16 154/76 97 11/15/21 21:00 82 17 156/88 98 11/15/21 20:19 86 18 184/90 97 11/15/21 17:01 98.3 F 79 16 156/84 96 Intake and Output 11/15/21 11/16/21 11/16/21 22:59 06:59 14:59 Other: Weight 62.596 kg Results CBC & Chem 7: 11/15/21 21:17 11/16/21 05:09 Labs: Abnormal Lab Results - Last 24 Hours (Table) 11/15/21 11/15/21 11/15/21 Range/Units 18:21 21:17 21:17 WBC 18.1 H (3.8-10.6) k/uL RBC 3.91 L (4.30-5.90) m/uL Hgb 12.5 L (13.0-17.5) gm/dL Hct 38.6 L (39.0-53.0) % Neutrophils # 16.0 H (1.3-7.7) k/uL Lymphocytes # 0.6 L (1.0-4.8) k/uL Monocytes # 1.2 H (0-1.0) k/uL Sodium 131 L (137-145) mmol/L Carbon Dioxide 21 L (22-30) mmol/L BUN 28 H (9-20) mg/dL Creatinine 1.83 H (0.66-1.25) mg/dL Glucose 142 H (74-99) mg/dL Calcium 8.1 L (8.4-10.2) mg/dL Urine Protein Trace H (Negative) Urine Ketones Trace H (Negative) Urine Blood Moderate H (Negative) 11/16/21 Range/Units 05:09 WBC (3.8-10.6) k/uL RBC (4.30-5.90) m/uL Hgb (13.0-17.5) gm/dL Hct (39.0-53.0) % Neutrophils # (1.3-7.7) k/uL Lymphocytes # (1.0-4.8) k/uL Monocytes # (0-1.0) k/uL Sodium 133 L (137-145) mmol/L Carbon Dioxide (22-30) mmol/L BUN 24 H (9-20) mg/dL Creatinine 1.80 H (0.66-1.25) mg/dL Glucose 123 H (74-99) mg/dL Calcium 7.7 L (8.4-10.2) mg/dL Urine Protein (Negative) Urine Ketones (Negative) Urine Blood (Negative) Assessment and Plan Time with Patient: Greater than 30
[2021-11-16] MEDS ORDERED: IOPAMIDOL-370 50ML BTL MISCELLANE ONE ×2 (17:11)
[2021-11-16] MEDS ORDERED: ALBUTEROL NEBULIZED 2.5 MG/3 ML INHALATION ONE (17:45)
--- NOTE | 2021-11-16 18:50 | P.OP ---
Date of Procedure: 11/16/21 Preoperative Diagnosis: ureteral stone Postoperative Diagnosis: same Procedure(s) Performed: cystoscopy, left ureteroscopy, ureteral balloon dilation and stent insertion Implants: 6 Samoan by 26 cm stent in the left ureter Anesthesia: MARIA GUADALUPE Surgeon: Wilton Aviles Estimated Blood Loss (ml): 5 Pathology: none sent Condition: stable Disposition: PACU Indications for Procedure: 85-year-old male, admitted to the hospital with acute kidney injury, and obstr uctive 6 mm left-sided proximal stone. Patient is having intractable pain secondary to his stone. Option of left-sided ureteroscopy with holmium laser was discussed with him. Discussed with him the risk which includes but not limited to bleeding, infection, injury to the ureter Operative Findings: narrowed left proximal ureter, unable to pass the scope Description of Procedure: Patient brought to the operating room, general anesthesia was induced. He was prepped and draped in sterile fashion and placed in dorsal lithotomy position. Cystoscopy fitted with a 21-Samoan sheath was inserted per urethra, cystoscopy was performed which showed no abnormality within the bladder, of note the bladder was moderately trabeculated and patient had an obstructive prostate with an enlarged median lobe. At this time the left ureteral orifice was identified and intubated with a sensor wire. Next under fluoroscopy 1113 Samoan access sheath was passed over the wire, at this point resistance was met at the mid ureter. At this time the access sheath was withdrawn and a ureteral balloon dilator was passed over the wire and into the mid ureter, the narrowed area was dilated. Next I was able to pass the access sheath past the narrowing into the distal portion of proximal ureter, resistance was met at the proximal ureter, thus access sheath was not passed any further. At this time the flexible ureteroscope was inserted through the access sheath, and significant narrowing was seen in the proximal ureter. I attempted to navigate the scope over the wire past the narrowing but was not able to. Given this finding decision was made to proceed with ureteral stent placement . retrograde pyelogram was performed which showed a narrowed portion of the proximal ureter, with a filling defect proximal to that consisted of the location of the stone with moderate hydronephrosis. At this time a sensor wire was advanced through the scope and passed the narrowing and into the renal pelvis. At this time the ureteroscope was withdrawn with the wire in place. Next a ureteral stent was passed over the wire, the proximal curl was visualized on fluoroscopy and the distal curl was visualized using the cystoscope. A hydronephrotic drip was seen from the stent. The bladder was emptied at the end of the case. Patient tolerated the procedure well was taken to recovery in stable condition
[2021-11-16] MEDS: FLUTICASONE 110 MCG INHALER INHALATION SCH (19:39)
[2021-11-16] MEDS: TAMSULOSIN 0.4 MG CAP.ER.24H PO SCH (19:48)
--- NOTE | 2021-11-16 20:29 | FL ---
Intraoperative/procedural fluoroscopic services were provided. Total fluoroscopy time is 5 seconds w ith a total of 2 submitted images to PACS. Please see the operative/procedural note for further detai ls.
[2021-11-17] MEDS: SODIUM CHLORIDE 0.9% 1,000 ML IV SCH ×2 (04:19→06:59)
[2021-11-17 06:49] LABS: HCT 33.8 % (39.0-53.0); HGB 10.9 gm/dL (13.0-17.5); Hypochromasia Slight; MCH 32.9 pg (25.0-35.0); MCHC 32.4 g/dL (31.0-37.0); MCV 101.3 fL (80.0-100.0); Macrocytosis Slight; Mean Platelet Volume 7.6; Platelet Count 231 k/uL (150-450); RBC 3.33 m/uL (4.30-5.90); RDW 13.7 % (11.5-15.5); WBC 11.7 k/uL (3.8-10.6)
[2021-11-17] MEDS: PANTOPRAZOLE 40 MG TABLET PO SCH (07:00)
[2021-11-17 07:14] LABS: African American GFR (CKD) 42 (>60 ml/min/1.73 sqM); Anion Gap 6 mmol/L; Blood Urea Nitrogen 22 mg/dL (9-20); Calcium 7.4 mg/dL (8.4-10.2); Carbon Dioxide 23 mmol/L (22-30); Chloride 105 mmol/L (98-107); Glucose 129 mg/dL (74-99); Non-African American GFR(CKD) 36 (>60 ml/min/1.73 sqM); Potassium 4.3 mmol/L (3.5-5.1); Sodium 134 mmol/L (137-145)
[2021-11-17] MEDS: IPRATROPIUM-ALBUTEROL 3 ML NEB INHALATION SCH ×2 (07:40→11:13)
[2021-11-17] MEDS: FLUTICASONE 110 MCG INHALER INHALATION SCH (07:40)
--- NOTE | 2021-11-17 07:42 | P.PN ---
Subjective No acute overnight events, underwent left-sided ureteroscopy with stent insertion yesterday doing well Objective - Vital Signs Vital signs: Vital Signs Temp 98.3 F 11/17/21 07:30 Pulse 80 11/17/21 07:30 Resp 20 11/17/21 07:30 BP 113/64 11/17/21 07:30 Pulse Ox 98 11/17/21 07:30 FiO2 Intake & Output 11/16/21 11/17/21 11/17/21 18:59 06:59 18:59 Intake Total 750 300 Output Total 1200 50 Balance 750 -900 -50 Intake: IV 750 Oral 300 Output: Urine 1200 50 Other: Voiding Method Urinal - Labs CBC & Chem 7: 11/15/21 21:17 11/17/21 06:24 Labs: Abnormal Lab Results - Last 24 Hours (Table) 11/17/21 Range/Units 06:24 Sodium 134 L (137-145) mmol/L BUN 22 H (9-20) mg/dL Creatinine 1.71 H (0.66-1.25) mg/dL Glucose 129 H (74-99) mg/dL Calcium 7.4 L (8.4-10.2) mg/dL Assessment and Plan Assessment: 85-year-old male, admitted to the hospital with acute kidney injury, and obstructive 6 mm left-sided proximal stone. Underwent left-sided ureteroscopy with stent insertion, unable to perform holmium laser lithotripsy secondary to narrowing in the proximal ureter. -Okay for discharge from the standpoint, we'll arrange for outpatient left-sided ureteroscopy with holmium laser 3-4 weeks
[2021-11-17] MEDS: atenoloL 25 MG TAB PO SCH (08:58)
[2021-11-17] MEDS ORDERED: ATORVASTATIN 40 MG TAB PO SCH (09:00)
[2021-11-17 10:08] VITALS: RESP 18
[2021-11-17 12:29] VITALS: BP 126/68; PULSE 82; TEMP 98.4
[2021-11-17 13:12] LABS: Band Neutrophils % 3 %; Eosinophils # (M) 0.59 k/uL (0-0.7); Lymphocytes # (M) 1.05 k/uL (1.0-4.8); Monocytes # (M) 0.23 k/uL (0-1.0); Neutrophils % (M) 81 %; Nucleated Red Blood Cells 0 /100 WBC (0-0); Total Cells Counted 100
[2021-11-17] MEDS ORDERED: NON FORMULARY DRUG (Omeprazole 40 MG Capsule.Dr) PO SCH (21:00)
[2021-11-17] MEDS ORDERED: APIXABAN 5 MG TAB PO SCH (21:00)
[2021-11-18] MEDS ORDERED: ASPIRIN 81 MG PO SCH (09:00)
--- NOTE | 2021-11-19 15:46 | P.DS ---
Providers Date of admission: 11/15/21 23:16 Attending physician: Magdiel Patel MD Consults: 11/15/21 22:17 Consult Physician Stat Consulting Provider: Wilton Aviles Consult Reason/Comments: Ureterolithiasis Do you want consulting provider notified?: Already Contacted Primary care physician: Elias K[facility] Course: Diagnosis Left flank pain secondary to stone in the proximal left ureter Moderate left hydronephrosis Acute renal injury multifocal with prerenal azotemia secondary to poor oral intake with obstructive uropathy. Luekocytosis, reactive Hypovolemic hyponatremia secondary to poor oral intake History COPD not in acute exacerbation Paroxysmal atrial fibrillation anticoagulated with eliquis outpatient. Hypertension Hyperlipidemia Full Code Discharge disposition Patient is stable for discharge and will follow up with urology in 3 to 4 weeks. He is also instructed to see primary care. PPI has been stopped and changed to pepcid due to renal function. Patient is status post stent placement with Dr Aviles. He has been started on flomax. Urology has okayed patient to resume eliquis. Repeat labs in 2 to 3 days outpatient. Hospital course This is an 85 year old male with history of atrial fibrillation, COPD, hypertension, hyperlipidemia, former smoker who presents to the hospital with complaints of sharp left flank pain on going since monday. Patient was found to have stone in the proximal left ureter measuring 6 x 4 x 4 mm and creatinine was elevated at 2.01. Outside CT completed at [facility] also shows moderate hydronephrosis on the left. No prior history of kidney stones. He denies shortness of breath, no chest pain. No nausea or vomiting. He does report left flank/back pain which he states has improved with IV pain medication. He does take eliquis outpatient per family at bedside he did not take today or yesterday. He was transferred here from outside facility. Patient had KUB completed which shows a nonacute abdomen and possible COPD. Labs on admission showing 131 and sodium has improved to 134 with IV hydration. Creatinine on admission 1.83 mostly due to obstructive uropathy. Patient also had leukocytosis at 18.1. Urinalysis negative for infection with moderate blood present. Urology was consulted for evaluation and performed cystoscopy with left ureteroscopy, ureteral balloon dilation and stent insertion. Patient tolerated procedure well and was monitored overnight post procedure and creatinine had improved to 1.71. Sodium has improved to 134 as well. White count improved to 11.7. Patient would like to be discharged home and was cleared by urology. 11/17/2021 Patient is evaluated today sitting up at bedside. He does have some hematuria however making urine. His creatinine is now 1.71 and urology has cleared patient for discharge. He will follow up in the office in 3 to 4 weeks for a second procedure recommending left sided ureteroscopy with holmium laser in 3 to 4 weeks. Labs showing white count 11.7, hgb 10.9, sodium 134, potassium 4.3, BUN 22, creatinine 1.71, blood glucose 129, calcium 7.4. Patient is alert and oriented. Denying pain, no nausea vomiting or diarrhea. Tolerating diet. No chest pain, no shortness of breath. His lungs are clear S1 S2 auscultated, abdomen is soft and nontender. Focal neurological exam is negative. Blood pressure 126/68, heart rate 82, 94% room air, afebrile 98.4. He would like to be discharged home. He has been resumed on eliquis. Please see medication reconciliation for list of current medications. Thank you for allowing us participate in the care of this patient. Total time taken in discharge planning greater than 35 minutes The impression and plan of care has been dictated by Suni Min, Nurse Practitioner as directed. Dr. Anna MD I have performed a history and physical examination and medical decision making of this patient, discussed the same with the dictator, and agree with the dictators assessment and plan as written, documented as a scribe. Based on total visit time, I have performed more than 50% of this visit. Patient Condition at Discharge: Stable Plan - Discharge Summary Discharge Rx Participant: No New Discharge Prescriptions: New Tamsulosin [Flomax] 0.4 mg PO PC-SUPPER #30 cap Famotidine [Pepcid] 20 mg PO BID #60 tablet Continue atenoloL 25 mg PO BID Ipratropium/Albuterol Sulfate [Combivent Respimat Inhaler] 1 - 2 puff INHALATION RT-QID PRN PRN Reason: Shortness Of Breath Budesonide [Pulmicort Flexhaler] 2 puff INHALATION RT-BID Aspirin 81 mg PO DAILY Acetaminophen Tab [Tylenol] 500 mg PO Q6H PRN PRN Reason: Pain Or Fever > 100.5 Meloxicam [Mobic] 7.5 mg PO DAILY PRN PRN Reason: Pain Atorvastatin [Lipitor] 40 mg PO DAILY Apixaban [Eliquis] 5 mg PO BID Discontinued Metoprolol Tartrate [Lopressor] 25 mg PO BID Omeprazole [PriLOSEC] 40 mg PO BID Discharge Medication List atenoloL 25 mg PO BID 11/28/17 [History] Budesonide [Pulmicort Flexhaler] 2 puff INHALATION RT-BID 12/01/17 [History] Ipratropium/Albuterol Sulfate [Combivent Respimat Inhaler] 1 - 2 puff INHALATION RT-QID PRN 12/01/17 [History] Acetaminophen Tab [Tylenol] 500 mg PO Q6H PRN 11/15/21 [History] Apixaban [Eliquis] 5 mg PO BID 11/16/21 [History] Aspirin 81 mg PO DAILY 11/16/21 [History] Atorvastatin [Lipitor] 40 mg PO DAILY 11/16/21 [History] Meloxicam [Mobic] 7.5 mg PO DAILY PRN 11/16/21 [History] Famotidine [Pepcid] 20 mg PO BID #60 tablet 11/17/21 [Rx] Tamsulosin [Flomax] 0.4 mg PO PC-SUPPER #30 cap 11/17/21 [Rx] Follow up Appointment(s)/Referral(s): Wilton Aviles MD [STAFF PHYSICIAN] - 2 Weeks Elias Barbour DO [Primary Care Provider] - 1-2 days Ambulatory/Diagnostic Orders: Basic Metabolic Panel [LAB.AMB] Time Frame: 2 Days, Location: None Selected Complete Blood Count w/diff [LAB.AMB] Time Frame: 2 Days, Location: None Selected Patient Instructions/Handouts: Ureteral Stones (DC), Ureteral Stent Placement (DC), Lithotripsy (DC) Activity/Diet/Wound Care/Special Instructions: Ok to resume eliquis per urology Stop Omeprazole begin pepcid 20 mg twice a day for GI upset/prophylaxis due to acute renal injury. Repeat CBC and BMP in 2 days outpatient Follow up with primary care Dr. Elias Barbour in 1 to 2 days Follow up with Dr Aviles with urology as recommended Monitor for color and quantity of urine Outpatient left sided ureteroscopy with holmium in [address] Aviles, call office for follow up appointment and to schedule procedure Discuss when/if you need to hold eliquis prior to procedure Discharge Disposition: HOME SELF-CARE
== END 2021-11-17 13:59 | disposition home or self-care (01) | DRG 660 ==
LOC: EC 15:22 → 5NMEDONC 23:16
PROVIDERS: ADMIT Internal Medicine; ATTEND Internal Medicine
PROC: 0T778DZ Dilation of Left Ureter with Intraluminal Device, Via Natural or Artificial Opening Endoscopic (ICD-10-PCS; principal; 2021-11-16 16:53)
DX: N13.2 Hydronephrosis with renal and ureteral calculous obstruction (principal); E87.1 Hypo-osmolality and hyponatremia; N17.9 Acute kidney failure, unspecified; E78.5 Hyperlipidemia, unspecified; J44.9 Chronic obstructive pulmonary disease, unspecified; I48.0 Paroxysmal atrial fibrillation; I10 Essential (primary) hypertension; E86.1 Hypovolemia; Z79.01 Long term (current) use of anticoagulants; Z79.1 Long term (current) use of non-steroidal anti-inflammatories (NSAID); Z79.82 Long term (current) use of aspirin; Z79.899 Other long term (current) drug therapy; Z87.891 Personal history of nicotine dependence; Z88.6 Allergy status to analgesic agent; Z88.1 Allergy status to other antibiotic agents; Z88.2 Allergy status to sulfonamides; Z88.8 Allergy status to other drugs, medicaments and biological substances; Z88.0 Allergy status to penicillin
CPT/HCPCS: 36415; 74018; 74420; 80048; 80053; 81001; 85025; 94640; 94760; 96361; 96374; 96375; 96376; 99285

== ENCOUNTER 2021-12-13 09:20 | Day surgery (SDC) | payer MEDICARE ==
[2021-12-10 15:17] VITALS: BMI 23.3
--- NOTE | 2021-12-13 08:59 | P.HPIHPCON ---
History of Present Illness H&P Date: 12/13/21 Chief Complaint: Left ureteral stone This is an 85-year-old male with history of a 6 mL left-sided proximal stone, status post stent insertion on November 16. He presents today for left-sided ureteroscopy with holmium laser. The risk and benefit and alternative of the procedure was discussed with him in detail. Discussed with him the risk which includes but not limited to bleeding, infection, injury to the ureter. He understood all the risk and agreed to proceed with left-sided ureteroscopy, holmium laser lithotripsy, stone basketing and stent removal Consent for Procedure: I have explained the operation/procedure to the patient, including the risks, benefits, side effects, alternative therapies (including not receiving the proposed treatment or service), the likelihood of the patient achieving his/her goals, and potential recuperation problems for the procedure/sedation/analgesia, as well as any blood products, if indicated. I also explained to the patient the risks, benefits and side effects of the alternatives, as well as the risks related to not receiving the proposed procedure, care, treatment, or services. Past Medical History Past Medical History: Atrial Fibrillation, COPD, CVA/TIA, GERD/Reflux, Hyperlipidemia, Hypertension, Rheumatoid Arthritis (RA) Additional Past Medical History / Comment(s): KIDNEY STONES 2021, TIA > 1 yr ago-no residual effects, History of Any Multi-Drug Resistant Organisms: None Reported Past Surgical History: Appendectomy, Orthopedic Surgery Additional Past Surgical History / Comment(s): "bone chip in rt ankle", rt shoulder rotator cuff, Past Anesthesia/Blood Transfusion Reactions: Postoperative Nausea & Vomiting (PONV) Smoking Status: Former smoker - Past Family History Sister(s) Family Medical History: Cancer Brother(s) Family Medical History: Cancer, Deep Vein Thrombosis (DVT) Mother Family Medical History: Cancer Medications and Allergies Home Medications Medication Instructions Recorded Confirmed Type atenoloL 25 mg PO BID 11/28/17 12/10/21 History Budesonide [Pulmicort Flexhaler] 2 puff INHALATION RT-BID PRN 12/01/17 12/10/21 History Ipratropium/Albuterol Sulfate 1 - 2 puff INHALATION RT-QID PRN 12/01/17 12/10/21 History [Combivent Respimat Inhaler] Acetaminophen Tab [Tylenol] 500 mg PO Q6H PRN 11/15/21 12/10/21 History Apixaban [Eliquis] 5 mg PO BID 11/16/21 12/10/21 History Aspirin 81 mg PO DAILY 11/16/21 12/10/21 History Atorvastatin [Lipitor] 40 mg PO DAILY 11/16/21 12/10/21 History Meloxicam [Mobic] 7.5 mg PO DAILY PRN 11/16/21 12/10/21 History Famotidine [Pepcid] 20 mg PO BID #60 tablet 11/17/21 12/10/21 Rx Tamsulosin [Flomax] 0.4 mg PO PC-SUPPER #30 cap 11/17/21 12/10/21 Rx Allergies Allergy/AdvReac Type Severity Reaction Status Date / Time prednisone Allergy Severe Rash/Hives Verified 12/10/21 15:08 acetaminophen Allergy Per PCP Verified 12/10/21 15:08 [From Darvocet-N] aspirin Allergy Rash/Hives Verified 12/10/21 15:08 celecoxib [From Celebrex] Allergy "passed Verified 12/10/21 15:08 out" ibuprofen [From Motrin] Allergy Per PCP Verified 12/10/21 15:08 levofloxacin [From Levaquin] Allergy Rash/Hives Verified 12/10/21 15:08 methylprednisolone Allergy Per PCP Verified 12/10/21 15:08 [From Medrol] Penicillins Allergy Rash/Hives Verified 12/10/21 15:08 propoxyphene Allergy Per PCP Verified 12/10/21 15:08 [From Darvocet-N] rofecoxib [From Vioxx] Allergy Per PCP Verified 12/10/21 15:08 Sulfa (Sulfonamide Allergy Per PCP Verified 12/10/21 15:08 Antibiotics) Surgical - Exam - General no distress, moderate pain - Eyes normal ocular movement - Respiratory normal expansion, normal respiratory effort - Abdomen Abdomen: soft, non tender Assessment and Plan Assessment: OR for Left-sided ureteroscopy, holmium laser lithotripsy, stone basketing and stent removal
[~2021-12-13 09:20] MED LIST changes: +HYDROmorphone 0.5 MG/0.5 ML SYRINGE IVP PRN; +ONDANSETRON 4 MG/2 ML VIAL IVP ONE; +ONDANSETRON 4 MG/2 ML VIAL IVP PRN; -ceFAZolin 1,000 MG in DEXTROSE/WATER 1 50ML.BAG IV ONE
[2021-12-13] MEDS: LACTATED RINGERS 1,000 ML IV SCH ×2 (09:43→13:08)
--- NOTE | 2021-12-13 10:27 | XR ---
KUB HISTORY: Kidney stones Frontal KUB submitted and correlated prior KUB 11/15/2021 Double-J stent is present on the left. Multiple calcifications are present within the pelvis some of which are likely vascular, some of which are likely prostatic. Calcification is seen over the left ki dney measuring approximately 5 mm. Postop changes are noted, there are sutures in the right abdomen. Lung bases are clear. IMPRESSION: Left-sided calcification may be within the kidney.
[2021-12-13] MEDS ORDERED: ePHEDrine 50 MG/ML 1 ML VIAL ONE (11:22)
[2021-12-13] MEDS ORDERED: fentaNYL (PF) 50 MCG/ML 2 ML AMP ONE (11:22)
[2021-12-13] MEDS ORDERED: SUCCINYLCHOLINE CHLORIDE 200 MG/10 ML VIAL IV ONE (11:22)
[2021-12-13] MEDS ORDERED: LIDOCAINE 2% INJ 20 MG/ML (2 ML VIAL) ONE (11:22)
[2021-12-13] MEDS ORDERED: PROPOFOL 10 MG/ML 20 ML VIAL IV ONE (11:22)
--- NOTE | 2021-12-13 12:19 | P.OP ---
Date of Procedure: 12/13/21 Preoperative Diagnosis: Left ureteral stone Postoperative Diagnosis: Same Procedure(s) Performed: Left ureteroscopy, holmium laser lithotripsy, stone basketing and stent removal Implants: None Anesthesia: LALYA Surgeon: Wilton Aviles Estimated Blood Loss (ml): 5 Pathology: other (left ureteral stone) Condition: stable Disposition: PACU Indications for Procedure: This is an 85-year-old male with history of a 6 mL left-sided proximal stone, status post stent insertion on November 16. He presents today for left-sided ureteroscopy with holmium laser. The risk and benefit and alternative of the procedure was discussed with him in detail. Discussed with him the risk which includes but not limited to bleeding, infection, injury to the ureter. He understood all the risk and agreed to proceed with left-sided ureteroscopy, holmium laser lithotripsy, stone basketing and stent removal Operative Findings: Previous left ureteral stone has migrated into the lower pole Description of Procedure: Patient brought to the operating room, general anesthesia was induced. He was prepped and draped in sterile fashion and placed in dorsal lithotomy position. cystoscopy fitted with 21 Fr Sheath was inserted per urethra, cystoscopy was performed which showed no abnormality within the bladder. 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 Attention was then carried to the left ureteral orifice and the stent was visualized protruding from it. Using the stent grasper the stent was removed meatus. Next a sensor wire was advanced through the stent and the stent was removed with the wire in place. Next a semirigid ureteroscope was inserted per urethra and advanced up the left ureteral orifice, complete ureteroscopy was performed which showed no evidence of stone along the ureter. Pullback ureteroscopy was performed which showed no injury to the ureter or any evidence of stone. Next under fluoroscopy [id number] Greek access sheath was passed over the wire and into the proximal ureter. Next a flexible cystoscope was inserted through the access sheath, renoscopy was performed which showed a stone in the lower pole. Using the stone basket the stone was repositioned to the upper pole. Using the holmium laser the stone was fragmented into 3 fragments, all 3 fragments were removed and sent for analysis. Repeat renoscopy showed no si zable stone or injury to the kidney. Pullback ureteroscopy was performed which showed no injury to the ureter or any ureteral stones. The bladder was emptied at the end of the case. Patient tolerated the procedure well was taken to recovery in stable condition
[2021-12-13 12:32] VITALS: TEMP 97.2
[2021-12-13 13:18] VITALS: BP 157/65; PULSE 52; RESP 16
== END 2021-12-13 14:32 | disposition home or self-care (01) ==
LOC: OR 09:20
PROVIDERS: ATTEND Urology
DX: N20.2 Calculus of kidney with calculus of ureter (principal); I10 Essential (primary) hypertension; E78.5 Hyperlipidemia, unspecified; E03.9 Hypothyroidism, unspecified; J44.9 Chronic obstructive pulmonary disease, unspecified; M19.90 Unspecified osteoarthritis, unspecified site; K21.9 Gastro-esophageal reflux disease without esophagitis; M06.9 Rheumatoid arthritis, unspecified; I48.91 Unspecified atrial fibrillation; Z87.442 Personal history of urinary calculi; Z88.6 Allergy status to analgesic agent; Z88.8 Allergy status to other drugs, medicaments and biological substances; Z88.5 Allergy status to narcotic agent; Z88.2 Allergy status to sulfonamides; Z86.73 Personal history of transient ischemic attack (TIA), and cerebral infarction without residual deficits; Z90.49 Acquired absence of other specified parts of digestive tract; Z87.891 Personal history of nicotine dependence; Z80.9 Family history of malignant neoplasm, unspecified; Z82.49 Family history of ischemic heart disease and other diseases of the circulatory system; Z79.899 Other long term (current) drug therapy
CPT/HCPCS: 82365; 74018; 52353; C1769; J0330; J2405; J3010; J2704; J2001